=== PATIENT | male | born 1940 | race Caucasian/White ===

== ENCOUNTER 2020-10-18 00:27 | Observation (INO) ==
[2020-10-18 01:53] LABS: Urine Appearance Clear; Urine Bilirubin Negative (Negative); Urine Blood Negative (Negative); Urine Color Yellow; Urine Glucose Negative (Negative); Urine Ketones Negative (Negative); Urine Nitrite Negative (Negative); Urine Protein Negative (Negative); Urine Specific Gravity 1.019 (1.002-1.030); Urine Urobilinogen Negative (Negative)
[2020-10-18 02:26] LABS: ABS Basophils 0.1 10^3/ul (0-0.2); ABS Eosinophils 0.1 10^3/ul (0-0.6); ABS Lymphocytes 1.5 10^3/ul (1.0-4.8); ABS Monocytes 0.8 10^3/ul (0-0.8); ABS Neutrophils 4.7 10^3/ul (1.5-7.7); Eosinophil % 0.8 %; Hematocrit 40 % (42-52); Hemoglobin 13.4 g/dL (14.0-18.0); Lymphocyte % 21.5 %; Mean Corpuscular HGB Conc 33 g/dL (31-36); Mean Corpuscular Hemoglobin 32 pg (27-31); Mean Corpuscular Volume 96 fL (80-94); Mean Platelet Volume 7.7 fL (7.4-10.4); Platelet Count 162 10^3/uL (150-450); Red Blood Count 4.19 10^6 /uL (4.18-5.48); Red Cell Distribution Width 13 % (10-15); White Blood Count 7.1 10^3/uL (3.5-10.8)
[2020-10-18 02:39] LABS: Alcohol, S < 10 mg/dL (<10); Salicylate < 2.50 mg/dL (<30)
[2020-10-18 02:41] LABS: ALT 11 U/L (7-52); AST 17 U/L (13-39); Albumin 3.9 g/dL (3.2-5.2); Albumin/Globulin Ratio 1.6 (1-3); Alkaline Phosphatase 51 U/L (35-149); Anion Gap 8 mmol/L (2-11); Blood Urea Nitrogen 35 mg/dL (6-24); CO2 Carbon Dioxide 25 mmol/L (22-32); Calcium 9.5 mg/dL (8.6-10.3); Chloride 105 mmol/L (101-111); Creatine Kinase 59 U/L (10-223); EGFR African American 65.2 (>60); EGFR Non-African American 53.9 (>60); Globulin 2.5 g/dL (2-4); Glucose 88 mg/dL (70-100); Magnesium 1.8 mg/dL (1.9-2.7); Potassium 4.3 mmol/L (3.5-5.0); Sodium 138 mmol/L (135-145); Total Protein 6.4 g/dL (6.4-8.9)
[2020-10-18 02:42] LABS: Troponin I 0.01 ng/mL (<0.03)
[2020-10-18] MEDS ORDERED: Magnesium Sulfate 2 gm BAG 2 GM/50 ML BAG IVPB ONE (04:11)
[2020-10-18 05:58] LABS: TSH Ultra Thyroid Stim Horm 1.28 mcIU/mL (0.34-5.60)
[2020-10-18 06:10] LABS: Vitamin B12 366 pg/mL (180-914)
[2020-10-18] MEDS ORDERED: Haloperidol 5 mg/ml SDV IV/IM 5 MG/ML AMP IV SLOW PU ONE (11:58)
[2020-10-18] MEDS ORDERED: Gadoteridol (CONTRAST) 279.3 MG/ML 10 ML IV ONE (15:26)
[2020-10-18 18:12] VITALS: BP 91/65
== END 2020-10-18 19:30 | disposition home or self-care (01) ==
LOC: MEDTELE 00:27 → ED 00:27
PROVIDERS: ADMIT Internal Medicine; ATTEND Hospitalist